=== PATIENT | female | born 1985 | race Caucasian/White ===

== ENCOUNTER 2021-12-10 11:53 | Emergency (ER) | payer BC, OTHER ==
[~2021-12-10] VITALS: Ht 170.1 cm; Wt 59.8 kg
[2021-12-10] MEDS ORDERED: morphine INJ 10 MG/ML 1ML (SYR OR VIAL) IVP STA (12:08)
[2021-12-10] MEDS ORDERED: ONDANSETRON 4 MG/2 ML (SDV) Z0FRAN IVP ONE (12:15)
[2021-12-10] MEDS ORDERED: NS IV 1000 ML 1,000 ML IV SCH (12:15)
--- NOTE | 2021-12-10 12:21 | Diagnostic Imaging Report ---
EXAMINATION: Chest 1 view HISTORY: Chest pain COMPARISON: None available. FINDINGS: The lungs are clear without edema or pneumonia. No pleural effusion or pneumothorax. Heart size is normal. IMPRESSION: 1. Clear lungs. Dictated by: Dictated on workstation # [id number]
--- NOTE | 2021-12-10 12:38 | ED General ---
General Chief Complaint: COVID19 Suspect/Confirmed Stated Complaint: COVID Nursing Triage Note: Patient presents to the ED with c/o headache, body aches, chills, and sore throat. Tested postive for COVID 19 today. Reports her PCP would not prescribe her an antiviral medication since she hasn't been seen in a couple years. States her symptoms began 2 days ago. Source of Information: Patient Exam Limitations: No Limitations History of Present Illness Date Seen by Provider: Dec 10, 2021 Time Seen by Provider: 12:05 Initial Comments Patient is a 36-year-old COVID-positive patient who presents with 2 days of fatigue, headache, body aches, chills and sore throat. Patient denies dizziness, blurred vision, loss of taste or smell, shortness of breath wheezing or productive cough. She denies chest pain chest tightness, abdominal pain nausea vomiting diarrhea. No other acute symptoms or complaints. Patient has been taking ibuprofen and Tylenol with limited relief. She contacted her primary care doctor today and was instructed to come to the ED for further evaluation. Timing/Duration: 2-3 Days Severity: Moderate Modifying Factors: improves with Other Associated Systoms: Other Allergies and Home Medications Allergies Coded Allergies: amoxicillin (Verified Allergy, Unknown, 12/10/21) Patient Home Medication List Home Medication List Reviewed: Yes Review of Systems Review of Systems Constitutional: see HPI EENTM: see HPI Respiratory: see HPI Cardiovascular: see HPI Gastrointestinal: see HPI Genitourinary: see HPI Musculoskeletal: see HPI Skin: see HPI Psychiatric/Neurological: See HPI Hematologic/Lymphatic: See HPI Immunological/Allergic: see HPI All Other Systems Reviewed Negative Unless Noted: Yes Past Osbkrda-Qkmrcq-Zuxzso Hx Patient Social History Tobacco Use?: No Substance use?: No Alcohol Use?: Yes Alcohol Frequency: Once in a while Pt feels they are or have been: No Immunizations Up To Date First/Initial COVID19 Vaccinat: Not currently vaccinated Past Medical History Surgery/Hospitalization HX: None Last Menstrual Period: Nov 26, 2021 Physical Exam Vital Signs Vital Signs - First Documented 12/10/21 12:01 Temp 38.3 Pulse 108 Resp 18 B/P (MAP) 112/65 (81) Pulse Ox 97 O2 Delivery Room Air Capillary Refill : Less Than 3 Seconds Height, Weight, BMI Height: '" Weight: lbs. oz. kg; 20.00 BMI Method: General Appearance: No Apparent Distress, WD/WN Eyes: Bilateral Eye Normal Inspection, Bilateral Eye PERRL, Bilateral Eye EOMI HEENT: PERRL/EOMI, Normal ENT Inspection, Pharynx Normal Neck: Full Range of Motion Respiratory: Lungs Clear, Normal Breath Sounds Cardiovascular: Regular Rate, Rhythm Gastrointestinal: Non Tender, Soft Neurologic/Psychiatric: Alert, Oriented x3 Skin: Normal Color Focused Exam Sepsis Stage: Ruled Out Progress/Results/Core Measures Suspected Sepsis SIRS Temperature: Pulse: 108 Respiratory Rate: 18 Laboratory Tests 12/10/21 12:32: White Blood Count 2.4L Blood Pressure 112 /65 Mean: 81 Laboratory Tests 12/10/21 12:32: Creatinine 0.70, Platelet Count 103L, Total Bilirubin 0.5 Results/Orders Lab Results Laboratory Tests Test 12/10/21 12:32 Range/Units White Blood Count 2.4 L 4.3-11.0 10^3/uL Red Blood Count 4.13 3.80-5.11 10^6/uL Hemoglobin 12.3 11.5-16.0 g/dL Hematocrit 36 35-52 % Mean Corpuscular Volume 87 80-99 fL Mean Corpuscular Hemoglobin 30 25-34 pg Mean Corpuscular Hemoglobin Concent 34 32-36 g/dL Red Cell Distribution Width 11.9 10.0-14.5 % Platelet Count 103 L 130-400 10^3/uL Mean Platelet Volume 11.5 9.0-12.2 fL Immature Granulocyte % (Auto) 0 % Neutrophils (%) (Auto) 72 42-75 % Lymphocytes (%) (Auto) 11 L 12-44 % Monocytes (%) (Auto) 16 H 0-12 % Eosinophils (%) (Auto) 0 0-10 % Basophils (%) (Auto) 0 0-10 % Neutrophils # (Auto) 1.8 1.8-7.8 X 10^3 Lymphocytes # (Auto) 0.3 L 1.0-4.0 X 10^3 Monocytes # (Auto) 0.4 0.0-1.0 X 10^3 Eosinophils # (Auto) 0.0 0.0-0.3 10^3/uL Basophils # (Auto) 0.0 0.0-0.1 10^3/uL Immature Granulocyte # (Auto) 0.0 0.0-0.1 10^3/uL Percent Immature Platelet Fraction 5.0 0.0-7.6 % Sodium Level 137 135-145 MMOL/L Potassium Level 3.5 L 3.6-5.0 MMOL/L Chloride Level 104 98-107 MMOL/L Carbon Dioxide Level 23 21-32 MMOL/L Anion Gap 10 5-14 MMOL/L Blood Urea Nitrogen 11 7-18 MG/DL Creatinine 0.70 0.60-1.30 MG/DL Estimat Glomerular Filtration Rate 115 BUN/Creatinine Ratio 16 Glucose Level 109 H 70-105 MG/DL Calcium Level 8.3 L 8.5-10.1 MG/DL Corrected Calcium 8.3 L 8.5-10.1 MG/DL Total Bilirubin 0.5 0.1-1.0 MG/DL Aspartate Amino Transf (AST/SGOT) 12 5-34 U/L Alanine Aminotransferase (ALT/SGPT) 9 0-55 U/L Alkaline Phosphatase 51 40-136 U/L Total Protein 6.2 L 6.4-8.2 GM/DL Albumin 4.0 3.2-4.5 GM/DL My Orders Orders - JEAN DOE DO Cbc With Automated Diff (12/10/21 12:03) Comprehensive Metabolic Panel (12/10/21 12:03) Chest 1 View Ap/Pa Only (12/10/21 12:03) Ns Iv 1000 Ml (Sodium Chloride 0.9%) (12/10/21 12:15) Dexamethasone Injection (Decadron Injec (12/10/21 12:15) Morphine Injection (Morphine Injection (12/10/21 12:08) Ondansetron Injection (Zofran Injectio (12/10/21 12:15) Medications Given in ED Current Medications Medications Dose Ordered Sig/Buddy Route Start Time Stop Time Status Last Admin Dose Admin Dexamethasone Sodium Phosphate 8 mg ONCE ONCE IV 12/10/21 12:15 12/10/21 12:16 DC 12/10/21 12:25 8 MG Ondansetron HCl 4 mg ONCE ONCE IVP 12/10/21 12:15 12/10/21 12:16 DC 12/10/21 12:25 4 MG Vital Signs/I&O 12/10/21 12:01 Temp 38.3 Pulse 108 Resp 18 B/P (MAP) 112/65 (81) Pulse Ox 97 O2 Delivery Room Air Capillary Refill : Less Than 3 Seconds Blood Pressure Mean: 81 Departure Communication (Admissions) CXR: NAD Symptomatic COVID without chest pain or respiratory compromise. Vital signs stable throughout encounter. Patient is resting comfortably and is pain-free. We will discharge home and continue supportive care with PCP follow-up. Return precautions reviewed. Patient verbalizes understanding agreement discharge instructions prior to departure. Impression Primary Impression: COVID-19 Disposition: HOME, SELF-CARE Condition: Stable Departure-Patient Inst. Referrals: JOSEFINA PALAFOX APRN (PCP) Primary Care Physician [facility] (Family) Primary Care Physician Patient Instructions: COVID-19 Home Care/Discharge Add. Discharge Instructions: Please go home and rest and continue self quarantine until 2 days after symptoms resolve. Take newly prescribed medications as directed. Additionally you may take Excedrin migraine [id number] for headache and body aches. Follow-up with your PCP in 5 to 7 days as needed. Return to the ED if new or worsening symptoms. All discharge instructions reviewed with patient and/or family. Voiced understanding. Scripts Azithromycin (Zithromax) 250 Mg Tablet 250 MG PO UD, #6 TAB TAKE 2 TABLETS TODAY, THEN TAKE 1 TABLET DAILY FOR 4 MORE DAYS Prov: JEAN DOE DO 12/10/21 Prednisone (Prednisone) 50 Mg Tab 50 MG PO DAILY, #7 TAB Prov: JEAN DOE DO 12/10/21 JEAN DOE DO Dec 10, 2021 12:38
[2021-12-10 12:45] LABS: HEMATOCRIT 36 % (35-52); HEMOGLOBIN 12.3 g/dL (11.5-16.0); MEAN CORPUSCULAR HEMOGLOBIN 30 pg (25-34); MEAN CORPUSCULAR HGB CONC 34 g/dL (32-36); MEAN CORPUSCULAR VOLUME 87 fL (80-99); MEAN PLATELET VOLUME 11.5 fL (9.0-12.2); MONOCYTES % (AUTO) 16 % (0-12); PLATELET COUNT 103 10^3/uL (130-400); WHITE BLOOD COUNT 2.4 10^3/uL (4.3-11.0)
[2021-12-10 12:46] LABS: BASOPHILS % (AUTO) 0 % (0-10); EOSINOPHILS % (AUTO) 0 % (0-10); LYMPHOCYTES # (AUTO) 0.3 X 10^3 (1.0-4.0); LYMPHOCYTES % (AUTO) 11 % (12-44); MONOCYTES # (AUTO) 0.4 X 10^3 (0.0-1.0); NEUTROPHILS # (AUTO) 1.8 X 10^3 (1.8-7.8); NEUTROPHILS % (AUTO) 72 % (42-75)
[2021-12-10 12:57] LABS: POTASSIUM 3.5 MMOL/L (3.6-5.0)
[2021-12-10 12:58] LABS: BILIRUBIN,TOTAL 0.5 MG/DL (0.1-1.0); CALCIUM 8.3 MG/DL (8.5-10.1); CREATININE SERUM 0.7 MG/DL (0.60-1.30); TOTAL PROTEIN 6.2 GM/DL (6.4-8.2)
[2021-12-10] MEDS ORDERED: AZIT250T PO (13:22)
[2021-12-10] MEDS ORDERED: PRD50T PO (13:22)
[2021-12-10 13:51] VITALS: BP 93/62
== END 2021-12-10 13:51 | disposition home or self-care (01) ==
LOC: ER FS 11:58
DX: U07.1 COVID-19 (principal); Z73.0 Burn-out; Z28.310 Unvaccinated for COVID-19
CPT/HCPCS: 36415; 71045; 80053; 85025